=== PATIENT | female | born 1975 | race Caucasian/White ===

== ENCOUNTER 2018-02-28 10:11 | Emergency (ER) | payer BC ==
[2018-02-28] MEDS ORDERED: LET GEL TOPICAL 1 EA SYR TP ONE ×2 (10:22→10:28)
--- NOTE | 2018-02-28 11:10 | EDPHY ---
H & P Stated Complaint: fell while trail running this morning, multiple injuries Time Seen by Provider: 02/28/18 10:42 HPI/ROS: CHIEF COMPLAINT: Right wrist pain, multiple abrasions post fall while trail running HISTORY OF PRESENT ILLNESS: 42-year-old female with up-to-date tetanus, visiting from [place], was trail [place] [facility] when she sustained a mechanical trip and fall falling forward sustaining multiple abrasions. She is complaining abrasions to bilateral elbows and bilateral knees as well as her right anterior thigh and specifically complaining of left knee pain and right wrist pain to the ulnar aspect. This occurred shortly prior to arrival. This was a mechanical episode with no syncope. No head injury. No loss of consciousness. No midline C-spine pain. No peripheral paresthesia, weakness, numbness. No chest pain or trauma no back pain or trauma no abdominal pain or trauma. REVIEW OF SYSTEMS: A ten point review of systems was performed and is negative with the exception of the items mentioned in the HPI PAST MEDICAL/SURGICAL HISTORY: no anticoagulant use, tetanus up-to-date SOCIAL HISTORY: denies alcohol use at time of incident PHYSICAL EXAM 1) GENERAL: Well-developed, well-nourished, alert and oriented. Appears to be in no acute distress. Answering questions appropriately. smiling., GCS 15 2) HEAD: Normocephalic, atraumatic 3) HEENT: Pupils equal, round, reactive to light bilaterally. Negative Horners. Nasopharynx, oropharynx, clear. No deformity or angulation of nose. No septal hematoma. No rhinorrhea. No oral trauma. Ears bilaterally with normal tympanic membranes. No hemotympanum. No fluid or blood in the external auditory canal. No raccoon eyes. No Gibbs sign. Teeth are normally aligned with no gross malocclusion, TMJ bilaterally nontender, facial bones nontender including the zygomatic arch, maxilla mandible. 4) NECK: No cervical collar is on. Posterior cervical spine is nontender, no stepoff, no effusion. Full range of motion which does not elicit any midline cervical spine pain, no posterior midline tenderness, no step-off. 5) LUNGS: Clear to auscultation bilaterally, no wheezes, no rhonchi, no retractions. No obvious signs of trauma. No chest wall pain. No flaring, no grunting. Moving symmetrically. No crepitus. 6) HEART: [Regular rate and rhythm, 7) ABDOMEN: No guarding, no rebound, no focal tenderness, no peritoneal signs, no signs of trauma, no ecchymosis 8) MUSCULOSKELETAL: Right upper extremity: Abrasion to the right dorsal elbow with full pain-free range of motion of the elbow including supination pronation. No radial head pain. She has tenderness to palpation to the ulnar aspect of the wrist on the volar aspect only. No deformity no angulation. Radial ulnar median nerve function intact. Left upper extremity: Abrasion to the left elbow with full pain-free range of motion of the elbow including supination pronation and no radial head pain. Left lower extremity: Abrasion to the left anterior knee overlying the patella with underlying patellar tenderness reproducible with palpitation and range of motion. No gross instability. Distal pulses and neurovascular status are normal. Right lower extremity right anterior thigh abrasion Moving all extremities, no focal areas of tenderness, no obvious trauma. 9) BACK: No midline vertebral tenderness, no fluctuance, no step-off, no obvious trauma, no visual or palpable abnormality. 10) SKIN: No laceration. No abrasion DIFFERENTIAL DIAGNOSIS: In no particular order including but not limited to fracture, sprain, strain - Personal History LMP (Females 10-55): IUD In Place Current Tetanus/Diphtheria Vaccine: Yes Current Tetanus Diphtheria and Acellular Pertussis (TDAP): Yes Tetanus Vaccine Date: 2017 - Medical/Surgical History Hx Asthma: No Hx Chronic Respiratory Disease: No Hx Diabetes: No Hx Cardiac Disease: No Hx Renal Disease: No Hx Cirrhosis: No Hx Alcoholism: No Hx HIV/AIDS: No Hx Splenectomy or Spleen Trauma: No Other PMH: mental health - Social History Smoking Status: Former smoker Constitutional: Initial Vital Signs Temperature (C) 36.6 C 02/28/18 10:16 Heart Rate 79 02/28/18 10:16 Respiratory Rate 18 02/28/18 10:16 Blood Pressure 122/77 H 02/28/18 10:16 O2 Sat (%) 99 02/28/18 10:16 O2 Delivery Mode Room Air Allergies/Adverse Reactions: No Known Allergies Allergy (Unverified 07/28/18 10:14) Home Medications: Medication Instructions Recorded Belsomra 02/28/18 Cbd 02/28/18 EMSAM 02/28/18 [place] [facility] 02/28/18 Melatonin 02/28/18 Xanax 02/28/18 Zofran 02/28/18 Medical Decision Making - Diagnostics Imaging Results: Imaging Impressions Wrist X-Ray 02/28/18 10:24 Impression: Nothing acute identified. Knee X-Ray 02/28/18 11:01 Impression: Nothing acute identified. Images reviewed myself ED Course/Re-evaluation: Patient was re-evaluated with serial examinations. Her wounds were cleansed in the ER. I reviewed her x-rays showing no signs of definitive fracture. I have placed in a Velcro volar splint and given orthopedic follow-up information. She feels comfortable being discharged. My usual and customary orthopedic and wound precautions and instructions were provided. I saw this patient independently based on established practice protocols. Care of patient under supervision of secondary supervising physician Dr Radha Seth. - Data Points Medications Given: Discontinued Medications Tetracaine/Epinephrine/Lidocaine (Let Gel Topical) 2 ea TP EDNOW ONE Stop: 02/28/18 10:29 Last Admin: 02/28/18 10:29 Dose: 2 ea Departure - Departure Disposition: Home, Routine, Self-Care Clinical Impression: Activity, running, Abrasion of knee, bilateral, Abrasion bilateral elbow, Abrasion, right thigh, initial encounter Wrist sprain Qualifiers: Encounter type: initial encounter Laterality: right Qualified Code(s): S63.501A - Unspecified sprain of right wrist, initial encounter Condition: Good Instructions: Abrasion (ED), Wrist Sprain (ED) Additional Instructions: Return to the ER if you develop redness, swelling, discharge, warmth to the wound, red streaks going up your arm or leg, or any other symptoms that concern you. Return to the ER immediately if you experience discoloration, have worsening pain, numbness, tingling, or any other symptoms that concern you. If you received x-rays in the emergency department today, be advised, that ligamentous , tendon, muscular, and other non-bony injury cannot be fully ruled out. Try to keep your affected extremity elevated above the level of your chest, and keep cold packs on the affected area, for the next 48 hours. Referrals: Andrew Boyd MD [Medical Doctor] - 2-3 days, call for appt.
[2018-02-28 12:26] VITALS: BP 118/69
== END 2018-02-28 12:25 | disposition home or self-care (01) ==
DX: S63.501A Unspecified sprain of right wrist, initial encounter (principal); S80.211A Abrasion, right knee, initial encounter; S80.212A Abrasion, left knee, initial encounter; S50.311A Abrasion of right elbow, initial encounter; S50.312A Abrasion of left elbow, initial encounter; S70.311A Abrasion, right thigh, initial encounter; Z87.891 Personal history of nicotine dependence; W01.0XXA Fall on same level from slipping, tripping and stumbling without subsequent striking against object, initial encounter; Y92.89 Other specified places as the place of occurrence of the external cause; Y99.8 Other external cause status; Y93.02 Activity, running